=== PATIENT | male | born 1985 | race Caucasian/White ===

== ENCOUNTER 2017-05-23 07:04 | Outpatient (CLI) | payer BC ==
[2017-05-23 11:58] LABS: BASOPHILS # (AUTO) 0.1 10^3/uL (0.0-0.1); EOSINOPHILS # (AUTO) 0.4 10^3/uL (0.0-0.7); EOSINOPHILS % (AUTO) 6.2 %; HCT - HEMATOCRIT 38.7 % (42.0-52.0); HGB - HEMOGLOBIN 13.1 g/dL (14.0-18.0); LYMPHOCYTES # (AUTO) 1.8 10^3/uL (1.5-3.5); MEAN CORPUSCULAR HEMOGLOBIN 30.5 pg (27.0-31.0); MEAN CORPUSCULAR HGB CONC 33.8 g/dL (32.0-36.0); MEAN CORPUSCULAR VOLUME 90.2 fL (80.0-94.0); MEAN PLATELET VOLUME 8.8 fL (7.4-11.4); MONOCYTES # (AUTO) 0.7 10^3/uL (0.0-1.0); MONOCYTES % (AUTO) 11.2 %; NEUTROPHILS # (AUTO) 3.3 10^3/uL (1.5-6.6); NEUTROPHILS % (AUTO) 52.6 %; RED BLOOD COUNT 4.29 10^6/uL (4.70-6.10); RED CELL DISTRIBUTION WIDTH 13.1 % (12.0-15.0); UNCORRECTED WHITE BLOOD COUNT 6.4 x10^3/uL; WHITE BLOOD COUNT 6.4 x10^3/uL (4.8-10.8)
[2017-05-23 12:25] LABS: ALBUMIN/GLOBULIN RATIO 1.6 (1.0-2.2); BUN - BLOOD UREA NITROGEN 17 mg/dL (6-20); CALCIUM 9.3 mg/dL (8.5-10.3); CARBON DIOXIDE - CO2 27 mmol/L (21-32); CHLORIDE 102 mmol/L (101-111); CHOL/HDL RATIO 3.5 (<5.0); CHOLESTEROL 135 mg/dL; CREATININE 0.8 mg/dL (0.6-1.2); GFR - MDRD 111 (>89); GLUCOSE 95 mg/dL (70-100); HDL CHOLESTEROL 39 mg/dL; POTASSIUM 4.3 mmol/L (3.5-5.0); SODIUM 137 mmol/L (135-145); TRIGLYCERIDES 37 mg/dL
[2017-05-23 12:31] LABS: HEMOGLOBIN A1C 0.57 g/dL
[2017-05-23 13:28] LABS: LDL CHOLESTEROL,DIRECT 86 mg/dL
== END 2017-05-23 07:05 | disposition home or self-care (01) ==
LOC: LAB.F 07:04
PROVIDERS: ATTEND Family Medicine
DX: I10 Essential (primary) hypertension (principal); J45.909 Unspecified asthma, uncomplicated; E74.39 Other disorders of intestinal carbohydrate absorption; K21.9 Gastro-esophageal reflux disease without esophagitis
CPT/HCPCS: 36415; 80053; 80061; 83036; 85025

== ENCOUNTER 2018-01-13 15:20 | Outpatient (CLI) | payer BC ==
[2018-01-13 18:03] LABS: BASOPHILS # (AUTO) 0.1 10^3/uL (0.0-0.1); BASOPHILS % (AUTO) 1.1 %; EOSINOPHILS # (AUTO) 0.3 10^3/uL (0.0-0.7); HGB - HEMOGLOBIN 13.6 g/dL (14.0-18.0); LYMPHOCYTES # (AUTO) 1.8 10^3/uL (1.5-3.5); LYMPHOCYTES % (AUTO) 27.1 %; MEAN CORPUSCULAR HGB CONC 34.2 g/dL (32.0-36.0); MEAN CORPUSCULAR VOLUME 90.7 fL (80.0-94.0); MEAN PLATELET VOLUME 8.4 fL (7.4-11.4); MONOCYTES # (AUTO) 0.8 10^3/uL (0.0-1.0); MONOCYTES % (AUTO) 12.4 %; NEUTROPHILS # (AUTO) 3.6 10^3/uL (1.5-6.6); NEUTROPHILS % (AUTO) 54.4 %; PLT - PLATELET COUNT 284 10^3/uL (130-450); RED BLOOD COUNT 4.39 10^6/uL (4.70-6.10); RED CELL DISTRIBUTION WIDTH 13.3 % (12.0-15.0); WHITE BLOOD COUNT 6.7 x10^3/uL (4.8-10.8)
[2018-01-13 18:20] LABS: CREATININE 0.8 mg/dL (0.6-1.2)
[2018-01-13 18:47] LABS: HB2 TOTAL 14.5 g/dL; HEMOGLOBIN A1C 0.53 g/dL; HEMOGLOBIN A1C % 5.5 % (4.6-6.2)
== END 2018-01-13 15:21 | disposition home or self-care (01) ==
LOC: LAB.F 15:20
PROVIDERS: ATTEND Family Medicine
DX: D64.9 Anemia, unspecified (principal); I10 Essential (primary) hypertension; E74.39 Other disorders of intestinal carbohydrate absorption
CPT/HCPCS: 36415; 80048; 82728; 83036; 83540; 84466; 85025

== ENCOUNTER 2019-05-05 07:04 | Outpatient (CLI) | payer BC ==
[2019-05-05 10:22] LABS: ALBUMIN 4.3 g/dL (3.2-5.5); ALBUMIN/GLOBULIN RATIO 1.4 (1.0-2.2); ALKALINE PHOSPHATASE 53 IU/L (42-121); ALT ALANINE AMINOTRANSFERASE 15 IU/L (10-60); AST ASPARTATE AMINOTRANSFERASE 20 IU/L (10-42); BILIRUBIN,TOTAL 2.2 mg/dL (0.2-1.0); BUN - BLOOD UREA NITROGEN 14 mg/dL (6-20); CALCIUM 9.1 mg/dL (8.5-10.3); CARBON DIOXIDE - CO2 31 mmol/L (21-32); CHLORIDE 102 mmol/L (101-111); CHOLESTEROL 137 mg/dL; CREATININE 0.9 mg/dL (0.6-1.2); GFR - MDRD 96 (>89); GLUCOSE 100 mg/dL (70-100); HDL CHOLESTEROL 45 mg/dL; SODIUM 140 mmol/L (135-145); TOTAL PROTEIN 7.4 g/dL (6.7-8.2)
== END 2019-05-05 07:05 | disposition home or self-care (01) ==
LOC: LAB.S 07:04
PROVIDERS: ATTEND Internal Medicine
DX: Z00.00 Encounter for general adult medical examination without abnormal findings (principal)
CPT/HCPCS: 36415; 80053; 80061; 83721

== ENCOUNTER 2020-07-14 16:08 | Outpatient (CLI) | payer BC | END 2020-07-14 16:09 | disposition home or self-care (01) | LOC: COV 16:08 | PROVIDERS: ATTEND Family Medicine | DX: R50.9 Fever, unspecified (principal); M79.10 Myalgia, unspecified site; R53.83 Other fatigue; Z20.828 Contact with and (suspected) exposure to other viral communicable diseases ==

== ENCOUNTER 2020-07-19 07:00 | Outpatient (CLI) | payer BC | END 2020-07-19 23:59 | disposition home or self-care (01) | LOC: LAB.R 07:00 | PROVIDERS: ATTEND Emergency Medicine | DX: J06.9 Acute upper respiratory infection, unspecified (principal) | CPT/HCPCS: 87070; 87077 ==

== ENCOUNTER 2020-08-08 08:00 | Outpatient (CLI) | payer BC ==
--- OUTSIDE RECORDS SUMMARY | 2020-08-09 11:06 | EXTERNAL MEDICAL SUMMARY RPT | Continuity of Care Document ---
:1985 Demographics Phone Unavailable Preferred Language Burmese Marital Status Unknown Latter Day Affiliation Unknown Race Unknown Ethnic Group Unknown Author Organization [place] Address [address] [phone] Phone Care Team Providers Name Role Phone DANIELA Unavailable Unavailable RANDOLPH Unavailable Unavailable Problems date description facility 2020-07-19 00:00 ACUTE UPPER RESPIRATORY [facility] INFECTION, UNSPECIFIED 2020-07-19 00:00:00 Acute upper respiratory [facility] infections of unspecified site [facility] 2020-07-19 00:00:00 CULT THROAT [facility] 2020-07-19 00:00:00 Acute upper respiratory [facility] infection, unspecified [facility] 2020-07-19 00:00:00 Health-related behavior [facility] 2020-07-19 00:00:00 Tobacco use and exposure [facility] 2020-07-19 00:00:00 Exercise [facility] 2020-07-19 00:00:00 Never smoker [facility] 2020-07-19 00:00:00 Viral upper respiratory tract [facility] Care infection [facility] 2020-07-19 07:00 ACUTE UPPER RESPIRATORY [facility] INFECTION, UNSPECIFIED 2020-07-30 00:00:00 [facility] 2020-07-30 00:00:00 Dermatitis due to drugs and [facility] medicines taken internally [facility] 2020-07-30 00:00:00 Streptococcal pharyngitis [facility] 2020-07-30 00:00:00 Adverse effect of unspecified [facility] drugs, medicaments and [facility] biological substances, initial encounter 2020-07-30 00:00:00 Health-related behavior [facility] 2020-07-30 00:00:00 Tobacco use and exposure [facility] 2020-07-30 00:00:00 Exercise [facility] 2020-07-30 00:00:00 Never smoker [facility] 2020-07-30 00:00:00 Eruption due to drug [facility] 2020-07-30 00:00:00 Alcohol use [facility] 2020-07-30 00:00:00 Tobacco smoking status NHIS [facility] 2020-07-30 00:00:00 Total score? [facility] 2020-08-08 00:00 STREPTOCOCCAL PHARYNGITIS [facility] 2020-08-08 00:00 ACUTE PHARYNGITIS, UNSPECIFIED [facility] 2020-08-08 00:00 RECURRENT ORAL APHTHAE [facility] 2020-08-08 00:00:00 RPR, Serum with Reflex [facility] 2020-08-08 00:00:00 HIV 1&2 with reflex [facility] 2020-08-08 00:00:00 Acute pharyngitis [facility] 2020-08-08 00:00:00 Oral aphthae [facility] 2020-08-08 00:00:00 Basic Metabolic Panel (BMP) [facility] 2020-08-08 00:00:00 Throat Culture [facility] 2020-08-08 00:00:00 Acute pharyngitis, unspecified [facility] 2020-08-08 00:00:[address] [facility] 2020-08-08 00:00:00 [facility] eruption [facility] 2020-08-08 00:00:00 Pain in throat [facility] 2020-08-08 00[facility]00:00 [facility]:00 Tobacco use and exposure [facility] 2020-08-08 00:00[facility]00 [facility]:00:[address] of mouth [facility] 2020-08-08 00:00:00 Alcohol use [facility] 2020-08-08 00:00:00 Tobacco [facility] 2020-08-08 00:00:00 [facility] Allergies date description facility NO KNOWN ENVIRONMENTAL ALLERGIES [facility] ADHESIVE [facility] CLINDAMYCIN [facility] POVIDONE-IODINE [facility] AMOXICILLIN [facility] MOXIFLOXACIN [facility] FLUTICASONE PROPION-SALMETEROL [facility] ADHESIVE TAPE-SILICONES [facility] No Known Drug Allergies [facility] No Known Drug Allergies [facility] Medications date description facility 2020-07-22 00:00:00 [facility] 2020-07-22 00:00:00 AMOXICILLIN [facility] 2020-07-26 00:00:00 null [facility] 2020-07-26 00:00:00 null [facility] 2020-07-26 00:00:00 AMOXICILLIN-POT CLAVULANATE [facility] 2020-07-26 00:00:00 AMOXICILLIN-POT CLAVULANATE [facility] 2020-07-30 00:00:00 null [facility] 2020-07-30 00:00:00 null [facility] 2020-07-30 00:00:00 CLINDAMYCIN HCL [facility] 2020-07-30 00:00:00 CLINDAMYCIN HCL [facility] Procedures date description facility 2020-07-19 00:00:00 Rapid Strep [facility] date description facility 2020-07-19 00:00:00 [facility] date description facility 2020-08-08 00:00:00 RPR, Serum with Reflex [facility] date description facility 2020-08-08 00:00:00 HIV 1&2 with reflex [facility] date description facility 2020-08-08 00:00:00 Basic Metabolic Panel (BMP) [facility] date description facility 2020-08-08 00:00:00 [facility] Results Social History date description facility 2020-07-19 00:00:00 Never smoker [facility] date description facility 2020-07-30 00:00:00 Never smoker [facility] date description facility 2020-08-08 00:00:00 Never smoker [facility] Social History date description facility 2020-07-19 00:00:00 [facility] 2020-07-30 [facility]:00[facility] 2020-08-08 00:00:00 [facility] facility [id number]
== END 2020-08-08 08:01 | disposition home or self-care (01) ==
LOC: LAB.R 08:00
PROVIDERS: ATTEND Physician Assistant
DX: J02.0 Streptococcal pharyngitis (principal); K12.0 Recurrent oral aphthae; R21 Rash and other nonspecific skin eruption
CPT/HCPCS: 36415; 80048; 81599; 86592; 87070; 87389

== ENCOUNTER 2020-08-08 15:03 | Outpatient (CLI) | payer BC ==
[2020-08-08 20:21] LABS: CALCIUM 8.9 mg/dL (8.5-10.3); CREATININE 0.8 mg/dL (0.6-1.2)
[2020-08-11 16:06] LABS: HIV AG/AB 4TH GEN NON-REACTIVE (NON-REACTIVE)
== END 2020-08-08 23:59 | disposition home or self-care (01) ==
LOC: LAB.S 15:03
PROVIDERS: ATTEND Physician Assistant
DX: J02.0 Streptococcal pharyngitis (principal); K12.0 Recurrent oral aphthae; R21 Rash and other nonspecific skin eruption
CPT/HCPCS: 36415; 80048; 81599; 87389

== ENCOUNTER 2020-11-03 06:38 | Day surgery (SDC) | payer BC ==
[2020-11-03] MEDS ORDERED: LACTATED RINGERS 1,000 ML IV ONE ×2 (07:16→07:54)
[2020-11-03] MEDS ORDERED: MIDAZOLAM 2 MG/2 ML VIAL ONE ×3 (07:21→07:33)
[2020-11-03] MEDS ORDERED: fentaNYL 250 MCG/5 ML VIAL ONE (07:21)
[2020-11-03 08:16] VITALS: BP 108/72
== END 2020-11-03 06:39 | disposition home or self-care (01) ==
LOC: SDS 06:38
PROVIDERS: ATTEND Surgery
DX: Z12.11 Encounter for screening for malignant neoplasm of colon (principal); Z80.0 Family history of malignant neoplasm of digestive organs; I10 Essential (primary) hypertension; J45.909 Unspecified asthma, uncomplicated; K21.9 Gastro-esophageal reflux disease without esophagitis; F90.1 Attention-deficit hyperactivity disorder, predominantly hyperactive type
CPT/HCPCS: 45378; J3010; J7120

== ENCOUNTER 2022-06-24 07:11 | Outpatient (CLI) | payer BC ==
[2022-06-24 15:07] LABS: BASOPHILS # (AUTO) 0.1 10^3/uL (0.0-0.1); BASOPHILS % (AUTO) 1.4 %; EOSINOPHILS # (AUTO) 0.5 10^3/uL (0.0-0.7); HCT - HEMATOCRIT 43.4 % (42.0-52.0); HGB - HEMOGLOBIN 13.9 g/dL (14.0-18.0); LYMPHOCYTES % (AUTO) 30.9 %; MEAN CORPUSCULAR HEMOGLOBIN 29.8 pg (27.0-31.0); MEAN CORPUSCULAR VOLUME 93.1 fL (80.0-94.0); MEAN PLATELET VOLUME 10.7 fL (7.4-11.4); MONOCYTES # (AUTO) 0.9 10^3/uL (0.0-1.0); MONOCYTES % (AUTO) 13.3 %; NEUTROPHILS % (AUTO) 47.2 %; PLT - PLATELET COUNT 292 10^3/uL (130-450); RED BLOOD COUNT 4.66 10^6/uL (4.70-6.10); RED CELL DISTRIBUTION WIDTH 13.4 % (12.0-15.0); WHITE BLOOD COUNT 6.4 x10^3/uL (4.8-10.8)
[2022-06-24 15:33] LABS: % IRON SATURATION 25 % (20-50); ALBUMIN 4.2 g/dL (3.2-5.5); ALBUMIN/GLOBULIN RATIO 1.6 (1.0-2.2); ALKALINE PHOSPHATASE 50 IU/L (42-121); ALT ALANINE AMINOTRANSFERASE 15 IU/L (10-60); AST ASPARTATE AMINOTRANSFERASE 17 IU/L (10-42); BILIRUBIN,TOTAL 1.2 mg/dL (0.2-1.0); BUN - BLOOD UREA NITROGEN 15 mg/dL (6-20); CARBON DIOXIDE - CO2 28 mmol/L (21-32); CHLORIDE 103 mmol/L (101-111); CHOL/HDL RATIO 2.7 (<5.0); CHOLESTEROL 146 mg/dL; CREATININE 0.9 mg/dL (0.6-1.2); GFR - MDRD 94 (>89); GLUCOSE 100 mg/dL (70-100); HDL CHOLESTEROL 54 mg/dL; IRON 106 ug/dL (45-182); LDL CHOLESTEROL,CALCULATED 81 mg/dL; LDL/HDL RATIO 1.5 (<3.6); POTASSIUM 4.4 mmol/L (3.5-5.0); SODIUM 139 mmol/L (135-145); TOTAL IRON BINDING CAPACITY 416 ug/dL (250-450); TOTAL PROTEIN 6.9 g/dL (6.7-8.2); TRANSFERRIN 297 mg/dL (180-329); TRIGLYCERIDES 54 mg/dL; VLDL CHOLESTEROL 11 mg/dL
[2022-06-24 16:03] LABS: THYROID STIMULATING HORMONE 1.77 uIU/mL (0.34-5.60)
[2022-06-24 16:09] LABS: FERRITIN 97.8 ng/mL (23.9-336.2)
== END 2022-06-24 07:12 | disposition home or self-care (01) ==
LOC: LAB.S 07:11
PROVIDERS: ATTEND Registered Nurse
DX: D64.9 Anemia, unspecified (principal); G25.81 Restless legs syndrome; Z79.899 Other long term (current) drug therapy; Z13.220 Encounter for screening for lipoid disorders; Z12.5 Encounter for screening for malignant neoplasm of prostate; Z13.29 Encounter for screening for other suspected endocrine disorder
CPT/HCPCS: 36415; 80053; 80061; 82728; 83540; 83721; 84153; 84443; 84466; 85025

== ENCOUNTER 2023-11-11 08:39 | Outpatient (CLI) | payer BC ==
[2023-11-11 14:53] LABS: BASOPHILS # (AUTO) 0.1 10^3/uL (0.0-0.1); BASOPHILS % (AUTO) 0.8 %; EOSINOPHILS # (AUTO) 0.4 10^3/uL (0.0-0.7); EOSINOPHILS % (AUTO) 3.8 %; HCT - HEMATOCRIT 46.3 % (42.0-52.0); HGB - HEMOGLOBIN 14.4 g/dL (14.0-18.0); LYMPHOCYTES % (AUTO) 21.9 %; MEAN CORPUSCULAR HEMOGLOBIN 29.6 pg (27.0-31.0); MEAN CORPUSCULAR HGB CONC 31.1 g/dL (32.0-36.0); MEAN CORPUSCULAR VOLUME 95.1 fL (80.0-94.0); MEAN PLATELET VOLUME 10.8 fL (7.4-11.4); MONOCYTES % (AUTO) 10.6 %; NEUTROPHILS # (AUTO) 5.7 10^3/uL (1.5-6.6); NEUTROPHILS % (AUTO) 62.6 %; PLT - PLATELET COUNT 305 10^3/uL (130-450); RED BLOOD COUNT 4.87 10^6/uL (4.70-6.10); RED CELL DISTRIBUTION WIDTH 13.3 % (12.0-15.0); WHITE BLOOD COUNT 9.2 x10^3/uL (4.8-10.8)
[2023-11-11 15:20] LABS: THYROID STIMULATING HORMONE 1.32 uIU/mL (0.34-5.60)
[2023-11-11 15:26] LABS: FERRITIN 117.9 ng/mL (23.9-336.2)
[2023-11-11 16:06] LABS: % IRON SATURATION 12 % (20-50); ALBUMIN 4.3 g/dL (3.2-5.5); ALBUMIN/GLOBULIN RATIO 1.3 (1.0-2.2); ALKALINE PHOSPHATASE 80 IU/L (42-121); ALT ALANINE AMINOTRANSFERASE 18 IU/L (10-60); AST ASPARTATE AMINOTRANSFERASE 16 IU/L (10-42); BILIRUBIN,TOTAL 1.2 mg/dL (0.2-1.0); BUN - BLOOD UREA NITROGEN 16 mg/dL (6-20); CALCIUM 9.7 mg/dL (8.5-10.3); CARBON DIOXIDE - CO2 28 mmol/L (21-32); CHLORIDE 104 mmol/L (101-111); CHOLESTEROL 180 mg/dL; CREATININE 0.9 mg/dL (0.6-1.3); GFR - MDRD 94 (>89); GLUCOSE 93 mg/dL (74-104); HDL CHOLESTEROL 45 mg/dL; IRON 50 ug/dL (50-212); LDL CHOLESTEROL,CALCULATED 117 mg/dL; LDL/HDL RATIO 2.6 (<3.6); POTASSIUM 4.4 mmol/L (3.5-4.5); SODIUM 138 mmol/L (135-145); TOTAL IRON BINDING CAPACITY 433 ug/dL (250-450); TOTAL PROTEIN 7.7 g/dL (6.4-8.9); TRANSFERRIN 309 mg/dL (203-362); TRIGLYCERIDES 89 mg/dL (48-352); VLDL CHOLESTEROL 18 mg/dL
== END 2023-11-11 08:40 | disposition home or self-care (01) ==
LOC: LAB.S 08:39
PROVIDERS: ATTEND Registered Nurse
DX: D64.9 Anemia, unspecified (principal); Z12.5 Encounter for screening for malignant neoplasm of prostate; Z13.228 Encounter for screening for other metabolic disorders; Z13.220 Encounter for screening for lipoid disorders; Z13.29 Encounter for screening for other suspected endocrine disorder; Z13.0 Encounter for screening for diseases of the blood and blood-forming organs and certain disorders involving the immune mechanism
CPT/HCPCS: 36415; 80053; 80061; 82728; 83540; 83721; 84153; 84443; 84466; 85025